=== PATIENT | female | born 1975 | race Caucasian/White ===

== ENCOUNTER 2017-04-16 16:55 | Emergency (ER) | payer OTHER ==
[2017-04-16 17:15] LABS: BASOPHIL 0.2 % (0-2); EOSINOPHIL 0.9 % (0-5); HCT 42.7 % (37.0-47.0); HGB 14.3 g/dl (12.5-16.0); LYMPHOCYTE 22.2 % (15-48); MCH 31.2 pg (25.0-31.0); MCHC 33.5 g/dL (32.0-36.0); MCV 93.2 fL (78.0-100.0); MONOCYTE 6.7 % (0-12); MPV 10.3 fL (6.0-9.5); PLT 331 K/uL (150-400); RBC 4.58 M/uL (4.20-5.40); WBC 14.3 K/uL (4.0-10.5)
[2017-04-16 17:28] LABS: PROTHROMBIN TIME 12.3 SECONDS (11.4-13.2); PTT 25.6 SECONDS (24.3-32.1)
[2017-04-16 17:30] LABS: D-DIMER < 0.27 ug/mLFEU (0.00-0.41)
[2017-04-16 17:40] LABS: BILIRUBIN - TOTAL 0.5 mg/dL (0.1-1.0); CREATININE 0.6 mg/dL (0.5-1.0); GLOBULIN (CALCULATION) 3.9 g/dL (2.2-4.2); MAGNESIUM 1.65 mg/dL (1.40-2.10); POTASSIUM 3.8 mmol/L (3.5-5.1); TOTAL PROTEIN 7.9 g/dL (6.4-8.3)
[2017-04-16 17:41] LABS: CKMB 1.13 ng/mL (0.97-4.94); MYOGLOBIN 21 ng/mL (26-65); PRO-BNP 37 pg/mL (0-125); TROPONIN T < 0.010 ng/mL
== END 2017-04-16 19:39 | disposition home or self-care (01) ==
LOC: FER 16:55
PROVIDERS: Emergency Medicine
DX: R07.89 Other chest pain (principal); F41.9 Anxiety disorder, unspecified; I10 Essential (primary) hypertension; F17.200 Nicotine dependence, unspecified, uncomplicated; Z82.49 Family history of ischemic heart disease and other diseases of the circulatory system; Z79.899 Other long term (current) drug therapy
CPT/HCPCS: 36415; 71010; 80053; 82550; 82553; 83735; 83874; 83880; 84484; 85025; 85379; 85610; 85730; 93005; J1100; J1885; J2405

== ENCOUNTER 2021-07-03 20:32 | Emergency (ER) | payer OTHER ==
[2021-07-03] MEDS ORDERED: AUGMENTIN 875-1 EACH PO (21:04)
== END 2021-07-03 21:52 | disposition home or self-care (01) ==
LOC: FER 20:32
DX: H66.92 Otitis media, unspecified, left ear (principal); F17.200 Nicotine dependence, unspecified, uncomplicated
CPT/HCPCS: 99282; J1885

== ENCOUNTER → 2021-09-22 | Day surgery (SDC) | payer OTHER ==
[~2021-09-22] VITALS: Ht 157 cm; Wt 82.0 kg
[~2021-09-22] MED LIST: AUGMENTIN 875-1 EACH PO; CYMBALTA 30MG C30 MG PO; ELAVIL25 MG PO; FLONASE ALLER15.8 ML; IBUPROFEN800 M1 PO; NAPROSYN500 MG PO; PERCOCET 7.5/321 TAB PO; PRENATAL FORMU1 EACH PO
[2021-09-22 07:49] LABS: BASOPHIL 0.6 % (0-2); EOSINOPHIL 3.1 % (0-5); HGB 12.9 g/dl (12.5-16.0); LYMPHOCYTE 43.2 % (15-48); MCHC 33.9 g/dL (32.0-36.0); MCV 94.3 fL (78.0-100.0); MONOCYTE 6.9 % (0-12); MPV 9.5 fL (6.0-9.5); NRBC 0; PLT 302 K/uL (150-400); RBC 4.03 M/uL (4.20-5.40); RDW 12.9 % (11.5-14.0)
== END | disposition home or self-care (01) ==
LOC: FAS 07:02
PROVIDERS: Oral & Maxillofacial Surgery
DX: K02.9 Dental caries, unspecified (principal); K04.7 Periapical abscess without sinus; G47.30 Sleep apnea, unspecified; F17.210 Nicotine dependence, cigarettes, uncomplicated; D64.9 Anemia, unspecified; M35.00 Sjogren syndrome, unspecified; K21.9 Gastro-esophageal reflux disease without esophagitis; Z88.1 Allergy status to other antibiotic agents; Z88.2 Allergy status to sulfonamides
CPT/HCPCS: D7140; D7210; 36415; 85025; 93005; J1100; J1170; J2250; J2370; J2405; J2704; J3010; J7120

== ENCOUNTER 2022-01-09 04:34 | Emergency (ER) | payer OTHER ==
[2022-01-09 04:47] LABS: BASOPHIL 0.5 % (0-2); EOSINOPHIL 0.3 % (0-5); HCT 39.8 % (37.0-47.0); HGB 13.7 g/dl (12.5-16.0); LYMPHOCYTE 19.7 % (15-48); MCH 31.6 pg (25.0-31.0); MCHC 34.4 g/dL (32.0-36.0); MCV 91.9 fL (78.0-100.0); MONOCYTE 6.4 % (0-12); MPV 9.8 fL (6.0-9.5); NEUTROPHIL 72.7 % (41-80); NRBC 0; PLT 351 K/uL (150-400); RBC 4.33 M/uL (4.20-5.40); RDW 12.3 % (11.5-14.0); WBC 16.2 K/uL (4.0-10.5)
[2022-01-09 05:06] LABS: ALBUMIN 4.1 g/dL (3.4-5.0); BILIRUBIN - TOTAL 0.7 mg/dL (0.2-1.0); BUN/CREAT RATIO (CALC) 11.8 RATIO; CREATININE 0.93 mg/dL (0.51-0.95); GLOBULIN (CALCULATION) 4.2 g/dL; POTASSIUM 2.7 mmol/L (3.5-5.1); TOTAL PROTEIN 8.3 g/dL (6.4-8.2)
[2022-01-09 08:33] LABS: BILIRUBIN NEGATIVE (NEGATIVE); BLOOD NEGATIVE Ery/uL (NEGATIVE); CLARITY CLEAR (CLEAR); COLOR YELLOW (YELLOW); GLUCOSE (U) NORMAL (NORMAL); LEUKOCYTES NEGATIVE Leu/uL (NEGATIVE); NITRITE NEGATIVE (NEGATIVE); PROTEIN NEGATIVE (NEGATIVE); SPECIFIC GRAVITY <=1.005 (1.001-1.030); UROBILINOGEN 0.2 mg/dL (0.2-1.0); pH 6.5 (5.0-9.0)
[2022-01-09 08:36] LABS: ECSTASY (MDMA) NEGATIVE (NEGATIVE); MARIJUANA (THC) NEGATIVE (NEGATIVE); METHADONE NEGATIVE (NEGATIVE)
[2022-01-09 08:37] LABS: AMPHETAMINES NEGATIVE (NEGATIVE); BARBITURATES NEGATIVE (NEGATIVE); OPIATES NEGATIVE (NEGATIVE); OXYCODONE POSITIVE (NEGATIVE)
[2022-01-09 09:11] LABS: BACTERIA TRACE; URINARY WBC RARE
[2022-01-09] MEDS ORDERED: DICLOFENAC SODI75 MG PO (09:12)
[2022-01-09] MEDS ORDERED: KLOR-CON M2020 MEQ PO (09:12)
== END 2022-01-09 12:31 | disposition home or self-care (01) ==
LOC: FER 04:34
PROVIDERS: Emergency Medicine
DX: S22.42XA Multiple fractures of ribs, left side, initial encounter for closed fracture (principal); E87.6 Hypokalemia; R19.7 Diarrhea, unspecified; R11.2 Nausea with vomiting, unspecified; I10 Essential (primary) hypertension; F17.200 Nicotine dependence, unspecified, uncomplicated; Z88.1 Allergy status to other antibiotic agents; Z79.899 Other long term (current) drug therapy; W19.XXXA Unspecified fall, initial encounter
CPT/HCPCS: 36415; 71260; 80053; 80305; 81001; 83690; 84484; 85025; 93005; J1170; J1885; J2405; J3475; J3480; J7030; Q9967